=== PATIENT | female | born 1955 | race Hispanic/Latino ===

== ENCOUNTER → 2019-06-10 | Day surgery (SDC) | payer BC ==
[2019-06-08 11:09] LABS: BASOPHILS % 0.6 % (0.0-1.0); EOSINOPHILS # (AUTO) 0.2 (0.0-0.4); EOSINOPHILS % 3.6 % (0.0-6.0); HEMATOCRIT 37.6 % (34.2-44.1); HEMOGLOBIN 12.6 g/dL (12.0-16.0); LYMPHOCYTES # (AUTO) 2.9 (1.0-3.2); LYMPHOCYTES % 44.8 % (18.0-39.1); MEAN CORPUSCULAR HEMOGLOBIN 29.5 pg (28-32); MEAN CORPUSCULAR HGB CONC 33.5 g/dL (31-35); MEAN CORPUSCULAR VOLUME 88.1 fL (81-99); MONOCYTES # (AUTO) 0.5 (0.2-0.8); NEUTROPHILS # (AUTO) 2.7 (2.1-6.9); NEUTROPHILS % 42.8 % (38.7-80.0); PLATELET COUNT 203 x10e3/uL (140-360); RED BLOOD COUNT 4.27 x10e6/uL (3.6-5.1); RED CELL DISTRIBUTION WIDTH 12.6 % (11.7-14.4)
[~2019-06-10] MED LIST: CALCIUM CARBON500 MG PO; LIDOCAINE HCL 2% LOCAL INJ 5 ML SDV VIAL INJ ONE; MIDAZOLAM HCL 2 MG/2 ML VIAL ONE; PROPOFOL IV EMULSION 10 MG/ML 20 ML VIAL ONE
--- OUTSIDE RECORDS SUMMARY | 2019-06-10 07:07 | XMS REPORT ---
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 Allergies, Adverse Reactions, Alerts Allergy Name Allergy Type Status Severity Reaction(s) Onset Date Inactive Date Treating Clinician Comments No Known Allergies DA Active U 2019-03-29 00:00:00 No Known Allergies DA Active U 2019-03-24 00:00:00 Medications This patient has no known medications. Results Test Description Test Time Test Comments Text Results Atomic Results Result Comments SCR MAMM BILATERAL CLYDE CAD DIGITAL 2019-05-20 10:43:16 - SCR MAMM BILATERAL CLYDE CAD DIGITALBILATERAL DIGITAL SCREENING MAMMOGRAM 3D/2D WITH CAD: 05/20/2019CLINICAL: Asymptomatic. Digital breast tomosynthesis was performed in addition to routine CC and MLO views. Current mammographic images were evaluated by either a [employer] M-Vu or a [employer] ImageChecker CAD (computer aided detection system). No prior exams were available for comparison. The tissue of both breasts is predominantly fatty. No suspicious mass, architectural distortion, malignant type calcification, or lymph node abnormality detected. IMPRESSION: NEGATIVEThere is no mammographic evidence of malignancy. Resume annual screening mammography in one year. Nick Dubose M.D. ss/penledy:05/20/2019 10:43:16 Fence Installer Foreman: Kymberly Blankenship FW, [facility]-FWletter sent: BIRADS 1-2 Normal Mammogram BI-RADS: 1 Negative AB HIV 1 2019-03-26 13:17:00 AB HIV 1 (test code=HIV1AB) Nonreactive NonReactive It is recognized that currently available assays for thedetection of antibodies to HIV-1 and/or HIV-2 may notdetect all infected individuals. A negative test result doesnot exclude the possibility of exposure to or infection withHIV. HIV antibodies may be undetectable in some stages ofthe infection and in some clinical conditions. AB HIV 1 16:01:00* Test Item Value Reference Range Comments AB HIV 1 2 (test code=[id number]) Nonreactive NonReactive It is recognized that currently available assays for thedetection of antibodies to HIV-1 and/or HIV-2 may notdetect all infected individuals. A negative test result doesnot exclude the possibility of exposure to or infection withHIV. HIV antibodies may be undetectable in some stages ofthe infection and in some clinical conditions. AB HIV 1 16:01:00* Test Item Value Reference Range Comments AB HIV 1 2 (test code=[id number]) Nonreactive NonReactive It is recognized that currently available assays for thedetection of antibodies to HIV-1 and/or HIV-2 may notdetect all infected individuals. A negative test result doesnot exclude the possibility of exposure to or infection withHIV. HIV antibodies may be undetectable in some stages ofthe infection and in some clinical conditions. COMPREHENSIVE METABOLIC [id number] 13:37:00* Test Item Value Reference Range Comments SODIUM (test code=NA) 140 mmol/L 136-145 POTASSIUM (test code=K) 4.1 mmol/L 3.5-5.1 CHLORIDE (test code=CL) 103.0 mmol/L 98-107 CARBON DIOXIDE (test code=CO2) 28.5 mmol/L 21-32 GLUCOSE (test code=GLU) 122 mg/dL 70-110 BLOOD UREA NITROGEN (test code=BUN) 13 mg/dL 7-18 GLOMERULAR FILTRATION RATE (test code=GFR) 102.6 >60 Unit of measure: mL/min/1.73 [id number] Range:Healthy Adults >90 mL/min/1.73 m2 For Chronic Kidney Disease: Stage II Mild Decrease in GFR 60-90 Stage III Moderate Decrease in GFR 30-59 Stage IV Severe Decrease in GFR 15-29 Stage V Kidney Failure <15 CREATININE (test code=CREAT) 0.59 mg/dL 0.55-1.30 TOTAL PROTEIN (test code=PROT) 8.0 g/dL 6.4-8.2 ALBUMIN (test code=ALB) 3.3 g/dL 3.4-5.0 GLOBULIN (test code=GLOB) 4.7 g/dL 2.2-4.2 ALBUMIN/GLOBULIN RATIO (test code=A/G) 0.7 0.7-2.0 CALCIUM (test code=CA) 8.6 mg/dL 8.2-10.1 BILIRUBIN TOTAL (test code=BILT) 0.66 mg/dL 0.2-1.00 SGOT/AST (test code=AST) 69.0 U/L 15-37 SGPT/ALT (test code=ALT) 70.0 U/L 12-78 Please note new normal range. ALKALINE PHOSPHATASE TOTAL (test code=ALKP) 144 U/L 46-116 PROTHROMBIN [id number] 13:21:00* Test Item Value Reference Range Comments PROTHROMBIN TIME PATIENT (test code=PTP) 12.0 secs 10.1-12.5 INTERNATIONAL NORMAL RATIO (test code=INR) 1.07 <2.0 RECOMMENDED THERAPEUTIC RANGE FOR ORAL ANTICOAGULANTTREATMENT: CONDITION INRProphylaxis of venous thrombosis in 2.0 - 3.0 high-risk medical or surgical patientsTreatment of venous thrombosis 2.0 - 3.0Prevention of embolism 2.0 - 3.0Prevention of recurrent embolism, or 3.0 - 4.5 patients with mechanical prosthetic intravascular valves IS PATIENT ON ANTICOAGULANTS ? [facility] been notified if Patient is on Heparin D rip? NOIf Yes, order CBC, OCCULT BLOOD, PT every other day NTHROMBOPLASTIN TIME [id number] 13:21:00* Test Item Value Reference Range Comments PTT ACTIVATED (test code=APTT) 35.3 secs 24.9-37.0 IS PATIENT ON ANTICOAGULANTS ? [facility] been notified if Patient is on Heparin D rip? NOIf Yes, order CBC, OCCULT BLOOD, PT every other day NCBC W/AUTO DIFF 2019-03-24 13:04:00* Test Item Value Reference Range Comments WHITE BLOOD CELL (test code=WBC) 5.4 K/mm3 5.8-11.0 RED BLOOD CELL (test code=RBC) 4.59 M/mm3 4.2-5.4 HEMOGLOBIN (test code=HGB) 13.4 g/dL 12-16 HEMATOCRIT (test code=HCT) 40.2 % 37-47 MEAN CELL VOLUME (test code=MCV) 88 fL 80-98 MEAN CELL HGB (test code=MCH) 29.2 pg 27-34 MEAN CELL HGB CONCENTRATION (test code=MCHC) 33.3 g/dL 30.8-34.1 RED CELL DISTRIBUTION WIDTH (test code=RDW) 13.2 % 11-16 PLT (test code=PLT) 190 K/mm3 130-400 MEAN PLATELET VOLUME (test code=MPV) 11.1 fL 8.9-12.1 NEUTROPHIL % (test code=NT%) 45.2 % 45-70 LYMPHOCYTE % (test code=LY%) 44.1 % 20-40 MONOCYTE % (test code=MO%) 6.4 % 3-10 EOSINOPHIL % (test code=EO%) 3.4 % 1-5 BASOPHIL % (test code=BA%) 0.7 % 0.0-1.1 NEUTROPHIL # (test code=NT#) 2.42 K/mm3 2.00-7.50 LYMPHOCYTE # (test code=LY#) 2.36 K/mm3 1.50-4.00 MONOCYTE # (test code=MO#) 0.34 K/mm3 0.2-0.8 EOSINOPHIL # (test code=EO#) 0.18 K/mm3 0.04-0.4 BASOPHIL # (test code=BA#) 0.04 K/mm3 0.02-0.10 MANUAL DIFF REQUIRED (test code=MDIFF) NO MANUAL DIFF NUCLEATED RED BLOOD CELL (test code=NRBC) 0 % 0-0
[2019-06-10 10:59] VITALS: BP 125/83
== END | disposition home or self-care (01) ==
LOC: OR 06:56
PROVIDERS: ATTEND Internal Medicine Gastroenterology
DX: Z12.11 Encounter for screening for malignant neoplasm of colon (principal); Z71.3 Dietary counseling and surveillance; E66.01 Morbid (severe) obesity due to excess calories; Z68.42 Body mass index [BMI] 45.0-49.9, adult; K21.9 Gastro-esophageal reflux disease without esophagitis; G47.33 Obstructive sleep apnea (adult) (pediatric); K57.30 Diverticulosis of large intestine without perforation or abscess without bleeding; K64.8 Other hemorrhoids
CPT/HCPCS: 36415; 45378; 85025; 93005; J2001; J2250; J2704

== ENCOUNTER 2021-07-26 14:46 | Emergency (ER) | payer BC, MEDICARE ==
[~2021-07-26] VITALS: Ht 149.9 cm; Wt 113.9 kg
[~2021-07-26 14:46] MED LIST changes: -LIDOCAINE HCL 2% LOCAL INJ 5 ML SDV VIAL INJ ONE; -MIDAZOLAM HCL 2 MG/2 ML VIAL ONE; -PROPOFOL IV EMULSION 10 MG/ML 20 ML VIAL ONE
[2021-07-26] MEDS ORDERED: HYDROCODONE/APAP 5MG-325MG TAB PO ONE (15:15)
[2021-07-26] MEDS ORDERED: METRONIDAZOLE 500 MG TAB PO ONE (15:15)
[2021-07-26] MEDS ORDERED: AMOXICILLIN/CLAVULANATE K 875 MG TAB PO SCH (15:25)
[2021-07-26 15:28] LABS: BASOPHILS % 0.3 % (0.0-1.0); EOSINOPHILS # (AUTO) 0.2 (0.0-0.4); EOSINOPHILS % 3.4 % (0.0-6.0); HEMATOCRIT 37.7 % (34.2-44.1); HEMOGLOBIN 12.3 g/dL (12.0-16.0); LYMPHOCYTES # (AUTO) 2.4 (1.0-3.2); LYMPHOCYTES % 35.9 % (18.0-39.1); MEAN CORPUSCULAR HEMOGLOBIN 28.5 pg (28-32); MEAN CORPUSCULAR HGB CONC 32.6 g/dL (31-35); MEAN CORPUSCULAR VOLUME 87.3 fL (81-99); MONOCYTES # (AUTO) 0.5 (0.2-0.8); MONOCYTES % 6.7 % (4.4-11.3); NEUTROPHILS # (AUTO) 3.6 (2.1-6.9); NEUTROPHILS % 53.4 % (38.7-80.0); PLATELET COUNT 191 x10e3/uL (140-360); RED BLOOD COUNT 4.32 x10e6/uL (3.6-5.1); RED CELL DISTRIBUTION WIDTH 13.7 % (11.7-14.4)
[2021-07-26] MEDS ORDERED: AMOXICILLIN/CLAVULANATE K 875 MG TAB ONE (15:32)
[2021-07-26 15:41] LABS: CLARITY,URINE SL CLOUDY (CLEAR); COLOR,URINE STRAW (YELLOW); KETONES,URINE NEGATIVE (NEGATIVE); LEUKOCYTE ESTERASE ,URINE NEGATIVE (NEGATIVE); NITRITE,URINE NEGATIVE (NEGATIVE); PROTEIN,URINE DIPSTICK NEGATIVE (NEGATIVE); URINE UROBILINOGEN 0.2 mg/dL (0.2 - 1)
[2021-07-26 15:44] LABS: BACTERIA,URINE MODERATE /HPF; EPITHELIAL CELLS,URINE MANY /LPF; MUCUS,URINE FEW (RARE)
[2021-07-26 15:51] LABS: ALBUMIN/GLOBULIN RATIO 0.6 (0.8-2.0); ANION GAP 9.9 mmol/L (8-16); CALCIUM 8.6 mg/dL (8.4-10.2); CREATININE, SERUM 0.73 mg/dL (0.57-1.11); POTASSIUM 3.9 mmol/L (3.5-5.1)
[2021-07-26] MEDS ORDERED: AUGMENTIN 500-1 EACH PO (16:22)
[2021-07-26] MEDS ORDERED: ONDANSETRON ODT4 MG PO (16:22)
[2021-07-26] MEDS ORDERED: METRONIDAZOLE500 MG PO (16:22)
[2021-07-26] MEDS ORDERED: DICYCLOMINE HCL20 MG PO (16:22)
[2021-07-26 16:34] VITALS: BP 140/62
== END 2021-07-26 16:34 | disposition home or self-care (01) ==
LOC: ER 15:00
DX: R10.32 Left lower quadrant pain (principal); K57.92 Diverticulitis of intestine, part unspecified, without perforation or abscess without bleeding; E11.65 Type 2 diabetes mellitus with hyperglycemia; I10 Essential (primary) hypertension; M81.0 Age-related osteoporosis without current pathological fracture
CPT/HCPCS: 36415; 80053; 81001; 85025; 99284

== ENCOUNTER 2022-02-08 11:48 | Emergency (ER) | payer BC, MEDICARE ==
[~2022-02-08] VITALS: Ht 149.9 cm; Wt 113.9 kg
[~2022-02-08 11:48] MED LIST changes: +AUGMENTIN 500-1 EACH PO; +DICYCLOMINE HCL20 MG PO; +METRONIDAZOLE500 MG PO; +ONDANSETRON ODT4 MG PO
[2022-02-08] MEDS ORDERED: KETOROLAC TROMETHAMINE 60 MG/2 ML VIAL IM ONE (12:15)
[2022-02-08] MEDS ORDERED: DICLOFENAC35 MG PO (12:56)
[2022-02-08 13:19] LABS: CLARITY,URINE TURBID (CLEAR); COLOR,URINE YELLOW (YELLOW); KETONES,URINE NEGATIVE (NEGATIVE); LEUKOCYTE ESTERASE ,URINE TRACE (NEGATIVE); NITRITE,URINE NEGATIVE (NEGATIVE); PROTEIN,URINE DIPSTICK NEGATIVE (NEGATIVE); URINE UROBILINOGEN 0.2 mg/dL (0.2 - 1)
[2022-02-08 13:26] LABS: BACTERIA,URINE MODERATE /HPF; EPITHELIAL CELLS,URINE FEW /LPF
== END 2022-02-08 13:14 | disposition home or self-care (01) ==
LOC: ER 12:02
DX: M54.50 Low back pain, unspecified (principal); I10 Essential (primary) hypertension; E11.9 Type 2 diabetes mellitus without complications; M81.8 Other osteoporosis without current pathological fracture; E66.01 Morbid (severe) obesity due to excess calories
CPT/HCPCS: 81001; 99283; J1885